=== PATIENT | male | born 1990 | race Caucasian/White ===

== ENCOUNTER 2020-06-08 07:16 | Outpatient (CLI) | payer BC ==
--- NOTE | 2020-06-08 18:19 | Ultrasound Report ---
PROCEDURE: Pelvic Limited or F/U INDICATIONS: LT GROIN PAIN TECHNIQUE: Real-time transabdominal scanning was performed of the the left groin with and without Valsalva maneu sylvain. COMPARISON: None. FINDINGS: Arising lateral to the epigastric vessels, there is a reducible small fat-containing inguinal hernia with fascial defect measuring up to approximately 5 mm. No solid mass or abnormal fluid collection. N o enlarged lymph nodes in the imaged region. IMPRESSION: Reducible small fat-containing indirect left inguinal hernia. Reviewed by: Vladislav Hernandez on 06/08/2020 5:18 PM [facility] Approved by: Vladislav Hernandez on 06/08/2020 5:18 PM [facility] Station ID: [id number]
== END 2020-06-08 07:17 | disposition home or self-care (01) ==
LOC: DI 07:16
PROVIDERS: ATTEND Physician Assistant Medical
DX: R10.2 Pelvic and perineal pain (principal); K40.90 Unilateral inguinal hernia, without obstruction or gangrene, not specified as recurrent
CPT/HCPCS: 76857